=== PATIENT | male | born 1975 | race Hispanic/Latino ===

== ENCOUNTER 2023-02-03 12:22 | Emergency (ER) | payer OTHER ==
[~2023-02-03 12:22] MED LIST: Iopamidol-370 76% 500 ML MDV (1 ML CHARGE) ONE
[2023-02-03] MEDS ORDERED: Morphine 4 MG/ML VIAL ONE (12:46)
[2023-02-03] MEDS ORDERED: Boostrix 0.5 ML (Tdap) VIAL (>/=7 yrs of age) ONE (12:46)
[2023-02-03] MEDS ORDERED: Ondansetron PF 4 MG/2 ML Vial ONE (12:46)
[2023-02-03 12:49] LABS: #Basophils 0.1 thou/uL (0.0-0.2); #Eosinphils 0.1 thou/uL (0.0-0.7); #Monocytes 0.6 thou/uL (0.11-0.59); #Neutrophils 8.3 thou/uL (1.40-6.50); %Basophils 0.9 % (0.0-1.0); %Eosinophils 0.9 % (0.0-10.0); %Lymphocytes 20.2 % (21.0-51.0); %Monocytes 4.7 % (0.0-10.0); %Neutrophils 68.4 % (42.0-75.0); Hemoglobin 16.7 g/dL (14.0-18.0); Mean Corpuscular HGB CONC 35.2 g/dL (32.0-36.0); Mean Corpuscular Volume 90.8 fl (78.0-98.0); Mean Platelet Volume 10.2 fL (7.4-10.4); Platelet Count 306 10x3/uL (130-400); RBC Distribution Width 12.3 % (11.5-14.5); Red Blood Cell (RBC) Count 5.22 mill/uL (4.70-6.10); White Blood Cell (WBC) Count 12.1 10x3/uL (4.8-10.8)
[2023-02-03 13:07] LABS: INR-International Normal Ratio 1.1; Prothrombin Time 14.5 sec (12.0-14.7)
[2023-02-03 13:08] LABS: PTT 29.8 sec (22.9-36.1)
[2023-02-03 13:19] LABS: ALT (SGPT) 68 U/L (8-55); AST (SGOT) 53 U/L (5-34); Albumin 4.8 g/dL (3.5-5.0); Alcohol Less than 10.0 mg/dL (Less than 10); Alkaline Phosphatase 75 U/L (40-110); Anion Gap 17 mmol/L (10-20); BUN (Urea Nitrogen) 10 mg/dL (8.9-20.6); Bilirubin, Total 0.6 mg/dL (0.2-1.2); Calc. Creatinine Clearance 0 mL/min (70-130); Carbon Dioxide 20 mmol/L (22-29); Chloride 104 mmol/L (98-107); Estimated GFR 107; Globulin 3.3 g/dL (2.4-3.5); Glucose 121 mg/dL (70-105); Lipase 36 U/L (8-78); Potassium 3.4 mmol/L (3.5-5.1); Protein, Total 8.1 g/dL (6.0-8.3); Sodium 138 mmol/L (136-145)
[2023-02-03] MEDS ORDERED: Lidocaine 2% PF 5 ML VIAL ONE (13:27)
[2023-02-03 17:14] LABS: Lactic Acid 2.7 mmol/L (0.5-2.2)
== END 2023-02-03 17:56 | disposition home or self-care (01) ==
LOC: ERS 12:22
DX: S22.059A Unspecified fracture of T5-T6 vertebra, initial encounter for closed fracture (principal); S22.069A Unspecified fracture of T7-T8 vertebra, initial encounter for closed fracture; S22.079A Unspecified fracture of T9-T10 vertebra, initial encounter for closed fracture; S22.089A Unspecified fracture of T11-T12 vertebra, initial encounter for closed fracture; S01.01XA Laceration without foreign body of scalp, initial encounter; V86.59XA Driver of other special all-terrain or other off-road motor vehicle injured in nontraffic accident, initial encounter
CPT/HCPCS: 36415; 70450; 71045; 71260; 72070; 72125; 74177; 80053; 80307; 83605; 83690; 85025; 85610; 85730; 90471; 90715; 93005; 96374; 96375; J2001; J2270; J2405; Q9967

== ENCOUNTER 2023-02-22 08:15 | Emergency (ER) | payer OTHER | END 2023-02-22 09:15 | disposition home or self-care (01) | LOC: ERS 08:15 | DX: S22.9XXA Fracture of bony thorax, part unspecified, initial encounter for closed fracture (principal); X58.XXXA Exposure to other specified factors, initial encounter | CPT/HCPCS: 99283 ==

== ENCOUNTER 2023-02-22 09:34 | Outpatient (CLI) | payer OTHER | END 2023-02-22 09:35 | disposition home or self-care (01) | LOC: RAD 09:34 | PROVIDERS: ATTEND Neurological Surgery | DX: S22.009A Unspecified fracture of unspecified thoracic vertebra, initial encounter for closed fracture (principal) | CPT/HCPCS: 72070 ==